=== PATIENT | male | born 1940 | race Caucasian/White ===

== ENCOUNTER 2017-03-09 13:33 | Emergency (ER) | payer OTHER ==
[~2017-03-09] VITALS: Ht 180.3 cm; Wt 105.9 kg
[2017-03-09 13:35] VITALS: BP 175/80
== END 2017-03-09 14:01 ==
LOC: ED 14:00
DX: S61.304D Unspecified open wound of right ring finger with damage to nail, subsequent encounter (principal); X58.XXXD Exposure to other specified factors, subsequent encounter
CPT/HCPCS: 99281